=== PATIENT | male | born 1970 | race Hispanic/Latino ===

== ENCOUNTER → 2023-06-07 10:28 | Outpatient (REF) | payer OTHER, MEDICAID, SELFPAY ==
[2023-06-07 12:51] LABS: Blood Urea Nitrogen 21 mg/dl (9-20); Calcium 8.9 mg/dl (8.4-10.2); Carbon Dioxide 22 mmol/L (22-30); Chloride 103 mmol/L (98-107); Glucose 424 mg/dl (70-99); Potassium 5.1 mmol/L (3.5-5.1); Sodium 132 mmol/L (135-145); eGFR > 60.00
== END ==
LOC: CLINIC 10:28
PROVIDERS: ATTENDING PHYSICIAN Nurse Practitioner Adult Health
DX: N28.9 Disorder of kidney and ureter, unspecified (principal); M54.2 Cervicalgia
CPT/HCPCS: 36415; 72052; 80048

== ENCOUNTER 2023-06-27 09:42 | Emergency (ER) | payer MEDICAID, SELFPAY ==
[2023-06-27 09:46] VITALS: BP 150/78
[2023-06-27 10:21] LABS: % Basophils 0.7 % (0-2); % Eosinophils 5.5 % (0-6); % Immature Granulocytes 0.3 % (0-0.5); % Lymphocytes 21.4 % (20.5-51.1); % Monocytes 4.2 % (1.7-9.3); % Neutrophils 67.9 % (42.2-75.2); Absolute Basophils 0.1 10^3/uL (0-0.2); Absolute Eosinophils 0.4 10^3/uL (0-0.7); Absolute Lymphocytes 1.6 10^3/uL (1.2-3.4); Absolute Monocytes 0.3 10^3/uL (0.1-0.6); Absolute Neutrophils 5.2 10^3/uL (1.4-6.5); Hematocrit 34.5 % (39.0-52.0); Hemoglobin 11.7 g/dL (13.0-18.0); Mean Corp Hgb Conc. 33.9 g/dL (33.0-37.0); Mean Corpuscular Hgb 27.5 pg (27.0-31.0); Mean Platelet Volume 9.8 fL (7.4-10.4); Nucleated Red Blood Cells % 0 % (-); Platelet Count 250 10^3/uL (130-400); Red Blood Cell Count 4.26 10^6/uL (4.70-6.10); Red Cell Dist. Width 13.2 % (11.5-14.5); White Blood Cell Count 7.6 10^3/uL (4.8-10.8)
--- NOTE | 2023-06-27 10:35 | ED.GENMED ---
History of Present Illness
<Jignesh Jenkins DO - Last Filed: 06/27/23 15:56>
General
Chief Complaint: Breathing Problem
Time Seen by Provider: 06/27/23 09:57
Travel History
Have you had any contact with someone who has COVID-19?: No
Do you have any symptoms of coronavirus? Fever > 100 degrees, chills, cough, shortness of breath, sore throat, loss of taste or smell, muscle aches, or headache?: No
<Nora Solis PA-C - Last Filed: 06/27/23 22:57>
General
Source: patient
Exam Limitations: none
Nursing documentation reviewed up to this point in time: agreed with
History of Present Illness
History of Present Illness:
Patient is a 53-year-old male with history atrial fibrillation on Eliquis, hypertension, hyperlipidemia, diabetes, renal cell carcinoma, asthma presenting for evaluation of shortness of breath and epigastric discomfort. This shortness of breath has
been present intermittently for the past few weeks, with an associated productive cough with white sputum. He denies any associated fever. No known recent virus/illness. He uses a few inhalers as [facility] by [facility] to control his asthma
including an inhaler that he uses daily along with 1 that is for as needed use. He has not had much improvement in shortness of breath with these inhalers over the past 2 days.
Patient also endorses some epigastric discomfort. He denies any nausea, vomiting, abdominal pain. No urinary symptoms.
He is compliant medications. He is currently working with his primary care fighter to get his diabetes under better control.
Past History
<Jignesh Jenkins DO - Last Filed: 06/27/23 15:56>
Past History
ED Past Medical History: Arrthythmia (Paroxysmal atrial fibrillation), Asthma, Cancer (kidney cancer), Hypercholesterolemia, IDDM and Other (vitillego)
ED Past Surgical History: Urological (neprectomy)
Social History
Tobacco: Former smoker (occasional smoker)
Alcohol: Occasional
Drug: None
Personal: Single
Living: alone
Employment: Employed
Family History
Family History: Diabetes
<Nora Solis PA-C - Last Filed: 06/27/23 22:57>
Physical Exam
Physical Exam:
General: Well appearing and non-toxic
Vitals: Hypertensive, otherwise vital signs stable, afebrile
HEENT: Atraumatic, normocephalic; pupils equal round reactive light bilaterally, protecting airway
Neck: appears supple, no JVD
CV: Regular rate and rhythm, heart sounds normal, no evidence of cyanosis
Resp: Decreased breath sounds bilaterally with expiratory wheeze,
Abd: Soft, very mild tenderness in epigastric/lower chest wall without rebound or guarding non-distended
Extremities: No deformities, no evidence of cyanosis or edema; DP pulses palpable and equal bilaterally
Neuro: alert and oriented x 3, grossly intact
Psych: Normal affect
Skin: Intact, no rashes
<Nora Solis PA-C - Last Filed: 06/27/23 22:57>
Heart Failure Risk
Heart Failure Risk Score: Yes
History of Stroke or TIA: No
History of intubation for respiratory distress: No
Heart rate on ED arrival >/= 110: No
SaO2 <90% on arrival on room air: No
HR >/=110 during 3min walk test (or too ill to perform test): No
ECG has acute ischemic changes: No
Urea >/=12mmol/L (BUN 33.6mg/dL): No
Serum CO2>/=35mmol/L: No
Troponin I or T elevated to OK Level (0.4mg/dL): No
NT-proBNP >/=5,000ng/L (5,000pg/ml): No
HF Risk Score: 0
Admission Status: LOW RISK 2.8% Consider discharge to home with f/u visit to PCP/[facility]
Course
<Jignesh Rhodes Alice, DO - Last Filed: 06/27/23 15:56>
Orders/Labs/Results
Orders:
Orders
06/27/23 09:51
Electrocardiogram (*1) Urgent
Reason for Study: Shortness of Breath
EKG- Treatment ONCE
06/27/23 10:11
Complete Blood Count/With Diff Urgent
Comprehensive Metabolic Panel Urgent
Lipase Urgent
NT-proBNP Urgent
Troponin I Urgent
Urinalysis Reflex To Culture Urgent
Date Specimen was Collected: 06/27/23
Time Specimen was Collected: 10:09
Urine Microscopic Reflex Cult Urgent
06/27/23 10:28
CR Chest - 2 Views Urgent
Comment:
Reason For Exam: shortness of breath
06/27/23 10:41
Dexamethasone Sod Phosphate [Decadron] 10 mg IV NOW STA
Ipratropium/Albuterol Sulfate [Duoneb] 3 ml INH R NOW STA
06/27/23 10:42
Ipratropium/Albuterol Sulfate [Duoneb] 3 ml INH R NOW STA
06/27/23 10:49
COVID-19 Antigen Urgent
Source: Nasal Swab
Influenza A+B Rapid Molecular Urgent
ANTOINE Source: Nasal Swab
Specimen Description:
06/27/23 12:46
Electrocardiogram (*1) Urgent
Reason for Study: Palpitations
EKG- Treatment ONCE
06/27/23 12:51
Diltiazem HCl [Cardizem] 10 mg IV NOW STA
06/27/23 13:36
Electrocardiogram (*1) Urgent
Reason for Study: Abnormal EKG
EKG- Treatment ONCE
Abnormal Lab Results
06/27/23 06/27/23
10:11 11:19
RBC 4.26 L 10^6/uL
(4.70-6.10)
Hgb 11.7 L g/dL
(13.0-18.0)
Hct 34.5 L %
(39.0-52.0)
Glucose 230 H mg/dl
(70-99)
AST 16 L U/L
(17-59)
Alkaline Phosphatase 148 H U/L
(38-126)
Ur Occult Blood Reflex 3+ A
(Negative)
Urine RBC 7-10 A /HPF
(0-2)
POC Glucose 259 H mg/dl
(70-99)
06/27/23 10:11
06/27/23 10:11
Vital Signs
Initial and Last Documented VS:
Initial Vital Signs
Temp Pulse Resp BP Pulse Ox
98.7 F 57 18 150/78 98
06/27/23 09:46 06/27/23 09:46 06/27/23 09:46 06/27/23 09:46 06/27/23 09:46
Last Documented Vital Signs
Temp Pulse Resp BP Pulse Ox
98.7 F 71 18 127/71 96
06/27/23 09:46 06/27/23 13:45 06/27/23 13:45 06/27/23 13:13 06/27/23 13:45
<Nora Solis PA-C - Last Filed: 06/27/23 22:57>
Orders/Labs/Results
Orders:
Orders
06/27/23 09:51
Electrocardiogram (*1) Urgent
Reason for Study: Shortness of Breath
EKG- Treatment ONCE
06/27/23 10:11
Complete Blood Count/With Diff Urgent
Comprehensive Metabolic Panel Urgent
Lipase Urgent
NT-proBNP Urgent
Troponin I Urgent
Urinalysis Reflex To Culture Urgent
Date Specimen was Collected: 06/27/23
Time Specimen was Collected: 10:09
Urine Microscopic Reflex Cult Urgent
06/27/23 10:28
CR Chest - 2 Views Urgent
Comment:
Reason For Exam: shortness of breath
06/27/23 10:41
Dexamethasone Sod Phosphate [Decadron] 10 mg IV NOW STA
Ipratropium/Albuterol Sulfate [Duoneb] 3 ml INH R NOW STA
06/27/23 10:42
Ipratropium/Albuterol Sulfate [Duoneb] 3 ml INH R NOW STA
06/27/23 10:49
COVID-19 Antigen Urgent
Source: Nasal Swab
Influenza A+B Rapid Molecular Urgent
ANTOINE Source: Nasal Swab
Specimen Description:
06/27/23 12:46
Electrocardiogram (*1) Urgent
Reason for Study: Palpitations
EKG- Treatment ONCE
06/27/23 12:51
Diltiazem HCl [Cardizem] 10 mg IV NOW STA
06/27/23 13:36
Electrocardiogram (*1) Urgent
Reason for Study: Abnormal EKG
EKG- Treatment ONCE
Abnormal Lab Results
06/27/23 06/27/23
10:11 11:19
RBC 4.26 L 10^6/uL
(4.70-6.10)
Hgb 11.7 L g/dL
(13.0-18.0)
Hct 34.5 L %
(39.0-52.0)
Glucose 230 H mg/dl
(70-99)
AST 16 L U/L
(17-59)
Alkaline Phosphatase 148 H U/L
(38-126)
Ur Occult Blood Reflex 3+ A
(Negative)
Urine RBC 7-10 A /HPF
(0-2)
POC Glucose 259 H mg/dl
(70-99)
06/27/23 10:11
06/27/23 10:11
Vital Signs
Initial and Last Documented VS:
Initial Vital Signs
Temp Pulse Resp BP Pulse Ox
98.7 F 57 18 150/78 98
06/27/23 09:46 06/27/23 09:46 06/27/23 09:46 06/27/23 09:46 06/27/23 09:46
Last Documented Vital Signs
Temp Pulse Resp BP Pulse Ox
98.7 F 71 18 127/71 96
06/27/23 09:46 06/27/23 13:45 06/27/23 13:45 06/27/23 13:13 06/27/23 13:45
<Nora Solis PA-C - Last Filed: 06/27/23 22:57>
MDM/Problems Addressed
Differential Diagnosis Includes:
asthma exacerbation, influenza, covid, bronchitis, pneumonia, doubt PE or peumothorax
MDM/Problems Addressed:
Patient is a 53 year old male with history as documented presenting for evaluation of ongoing shortness of breath over the past few weeks with an associated productive cough. He endorses mild fullness in upper abdomen. No fever, chills, chest pain,
or known viruses. Patient has tried his inhalers as prescribed for asthma with minimal improvement. Patient is hypertensive, otherwise vital signs stable. Oxygen saturation 97 on room air. Physical exam as documented above. He has diminished breath
sounds bilaterally with faint wheezing. No evidence of DVT in lower extremities. Suspect this is likely an asthma exacerbation from viral cause. Basic labs, lipase, UA obtained in triage and currently pending. Will add on viral swabs an chest xray.
Will give 10mg decadron and 2 duoneb
EKG shows sinus bradycardia rate of 58 without signs of ischemia. CBC without any clinically significant abnormalities. CMP with hyperglycemia - otherwise no clinically significant abnormalities. Patient reports did not take insulin this morning
since he was in emergency department. ProBNP negative. Troponin negative. Lipase normal. viral swabs negative
Blood was found incidentally on urinalysis that was sent. patient will follow-up with urology.
Chest xray without any signs of acute disease
Update: Patient feeling better after duonebs and steroids. Air movement improved from initial lung exam. Following duonebs- patient reported heart palpitations and was found to be in rapid atrial flutter. Gave 10mg cardizem and patient quickly
converted back NSR. Repeat EKG obtained.
Patient feeling much better- suspect asthma exacerbation with reponse to breathing tx/steroids. His vital signs remain stable.Will discharge with close return precautions, oral steroids, albuterol, follow-up with PCP / urology. Patient comfortable
with this plan. All questions answered.
Chronic conditions affecting care:
Hypertension, atrial fibrillation, diabetes, asthma
Acute Exacerbation and/or Progression of Chronic Illness:
Acute asthma exacerbation, acutely hypertensive
<Nora Solis PA-C - Last Filed: 06/27/23 22:57>
*Radiology
Radiology exam reviewed: preliminary read by ED provider and radiology read reviewed
*Pulse Oximetry
Patient hypoxic: no
*EKG
Interpreted by ED Provider?: Yes
EKG Intrepretation Date: 06/27/23
Interpretation: normal
Comparison EKG: no changes
Heart Rate: 58
Rate: bradycardiac
Rhythm: sinus
Hinkle: normal axis
Interval: normal interval
QRS Pattern: normal QRS
Ischemia: no ischemia
*Food Services Manager Interpretation
Rate: normal
Interpretation: normal
Heart Rate: 68
Rhythm: sinus
*Critical Care Note
Total Time (30-74mins, 75-104mins- exclusive of procedures): Not Applicable
ED Attending Note
<Jignesh Jenkins DO - Last Filed: 06/27/23 15:56>
ED Attending Note
Patient seen and examined by attending physician: Yes
I performed the substantive portion of visit, reviewed & personally made and approve the management plan that is documented in note by myself or KEYUR.: Yes
I performed a history and physical exam of patient and discussed management with resident, I reviewed resident's note and agree with documented findings and plan of care.: Yes
ED Attending Note:
I evaluated patient at bedside. The patient has wheeze with decreased breath sounds. Will obtain the chest x-ray and try DuoNebs with steroids. The patient does have a history of asthma. While in the ED, the patient did go into rapid atrial
flutter after he was given 2 DuoNebs. I did give a dose of Cardizem and this did convert him back to a sinus rhythm confirmed on repeat EKG. Overall he feels improved. Will continue steroids.
-
Portions of this chart may have been created with voice recognition software.� Occasional wrong word or��sound alike� substitutions may have occurred due to the inherent limitations of voice recognition software.
Discharge Plan
Departure
Patient Disposition: Home (Routine Discharge)
Date of Disposition: 06/27/23
Time of Disposition: 13:44
Patient with high blood pressure during this ER visit?: No
Condition: Good
Covid-19: Negative COVID-19
Discharge Problem:
Acute asthma exacerbation
Instructions: Asthma, Adult (DC), Acute Bronchitis, Adult (DC)
Prescriptions:
New
prednisone 50 mg tablet
50 mg PO DAILY Qty: 4 0RF
albuterol sulfate [ProAir HFA] 90 mcg/actuation HFA aerosol inhaler
1 puff inhalation Q4HPRN PRN (Reason: shortness of breath or cough) Qty: 8.5 0RF
No Action
cyanocobalamin (vitamin B-12) 1,000 mcg Tablet
1,000 mcg PO DAILY
atorvastatin 10 mg tablet
10 mg PO QPM
lisinopril 5 mg tablet
5 mg PO DAILY
albuterol sulfate 90 mcg/actuation Hfa Aerosol Inhaler
2 puff INHALATION R Q4 PRN (Reason: sob/wheezing)
famotidine 20 mg tablet
20 mg PO BID
montelukast 10 mg tablet
10 mg PO QPM
fluticasone propionate 50 mcg/actuation [place],Suspension
1 spray INTRANASAL BID
loratadine 10 mg tablet
10 mg PO DAILY
insulin lispro [Humalog KwikPen Insulin] 100 unit/mL Insulin Pen
10 - 20 sliding scale dose SC MEALS
insulin glargine [Basaglar KwikPen U-100 Insulin] 100 unit/mL (3 mL) Insulin Pen
40 - 42 unit SC HS
fluticasone furoate-vilanterol [Breo Ellipta] 100-25 mcg/dose Blister With Device
1 inh INHALATION R DAILY
tramadol 50 mg Tablet
50 mg PO Q6HPRN PRN (Reason: moderate pain) Qty: 30 0RF
docusate sodium [Colace] 100 mg capsule
100 mg PO BID Qty: 20 0RF
amoxicillin-pot clavulanate 875-125 mg tablet
1 tab PO Q12H Qty: 8 0RF
ferrous sulfate 325 mg (65 mg iron) Tablet
325 mg PO BID Qty: 0 0RF
metoprolol succinate 25 mg tablet extended release 24 hr
25 mg PO BID Qty: 30 0RF
Eliquis 5 MG tablet
5 mg PO BID Qty: 0 0RF
Rx Instructions:
free from [facility] . Start 01/03/23
meclizine [Antivert] 25 mg Tablet,Chewable
25 mg PO BIDPRN PRN (Reason: nausea or vertigo) Qty: 10 0RF
Referrals:
NONE,* [Family Provider] -
Activity Restrictions/Additional Instructions:
-Return to the emergency department with any high fevers, shortness of breath/difficulty breathing, chest pain, dizziness, palpitations, severe abdominal pain, intractable vomiting, worsening in current symptoms, or any other concerns
-Your prescriptions have been sent to your pharmacy. As discussed�you should continue to use as inhalers as directed. You can start the steroid tomorrow and take daily for the following 4 days. Use albuterol inhaler every 4-6 hours as needed for
cough/shortness of breath
-As discussed�there was some blood seen in your urine today you should follow-up with your urologist for further evaluation/management
-Your glucose was high in the emergency room today you should follow-up with your primary care for further evaluation/management of diabetes
-Follow-up with primary care for further evaluation/management of your asthma
Interventions
Interventions:
*Risk Screen - Suicide Last Done: 06/27/23 10:14
*General Assessment Last Done: 06/27/23 10:14
*Neglect/Abuse Screening Last Done: 06/27/23 10:14
ED- Fall Risk Assessment Last Done: 06/27/23 14:02
*ED COVID-19 Vaccine History Last Done: 06/27/23 09:49
*Nursing Disposition Last Done: 06/27/23 14:02
ED- Cardiac Assessment Last Done: 06/27/23 10:09
ED- Pulmonary Assessment Last Done: 06/27/23 10:09
Discharge Date and Time
Discharge Date/Time: 06/27/23 14:04
[2023-06-27 10:42] LABS: ALT (SGPT) 17 U/L (0-50); AST (SGOT) 16 U/L (17-59); Albumin 4.2 g/dl (3.5-5.0); Alkaline Phosphatase 148 U/L (38-126); Blood Urea Nitrogen 20 mg/dl (9-20); Calcium 9.2 mg/dl (8.4-10.2); Carbon Dioxide 23 mmol/L (22-30); Chloride 104 mmol/L (98-107); Glucose 230 mg/dl (70-99); Lipase 98 U/L (23-300); Potassium 4.3 mmol/L (3.5-5.1); Sodium 135 mmol/L (135-145); Total Bilirubin 0.5 mg/dl (0.2-1.3); Total Protein 7.8 g/dl (6.3-8.2); eGFR > 60.00
[2023-06-27 10:43] LABS: NT-proBNP 157 pg/ml; Troponin I < 0.012 ng/ml
[2023-06-27] MEDS: DUONEB 3 ML INH ×2 (10:47)
[2023-06-27] MEDS: DECADRON 10 MG IV (10:47)
[2023-06-27 11:03] LABS: Urine Albumin Negative (Neg - Trace); Urine Bilirubin Negative (Negative); Urine Character Clear (Clear); Urine Color Yellow; Urine Glucose Negative (Negative); Urine Ketone Negative (Negative); Urine Leukocyte Negative (Negative); Urine Nitrite Negative (Negative); Urine Occult Blood 3+ (Negative); Urine Urobilinogen Negative (Neg - 1+)
[2023-06-27 11:17] VITALS: BP 155/78
[2023-06-27 11:21] LABS: Glucose - Point of Care 259 mg/dl (70-99)
[2023-06-27 11:23] LABS: COVID-19 Antigen Negative (Negative)
[2023-06-27 12:00] VITALS: BP 118/68
[2023-06-27 12:45] VITALS: BP 140/84
[2023-06-27] MEDS: CARDIZEM 10 MG IV (12:55)
[2023-06-27 13:13] VITALS: BP 127/71
== END 2023-06-27 14:04 | disposition home or self-care (01) ==
LOC: EMR 09:42
PROVIDERS: Physician Assistant; EMERGENCY PHYSICIAN Emergency Medicine
DX: J45.901 Unspecified asthma with (acute) exacerbation (principal); J45.909 Unspecified asthma, uncomplicated; I48.92 Unspecified atrial flutter; Z87.891 Personal history of nicotine dependence; Z11.52 Encounter for screening for COVID-19
CPT/HCPCS: 99285; 96374; 94640; 71046; 80053; 81003; 81015; 82962; 83690; 83880; 84484; 85025; 87502; 87811; 93005

== ENCOUNTER → 2023-10-11 09:20 | Outpatient (REF) | payer MEDICAID, OTHER, SELFPAY ==
[2023-10-11 12:00] LABS: ALT (SGPT) 15 U/L (0-50); AST (SGOT) 16 U/L (17-59); Albumin 3.9 g/dl (3.5-5.0); Alkaline Phosphatase 128 U/L (38-126); Blood Urea Nitrogen 26 mg/dl (9-20); Calcium 9.2 mg/dl (8.4-10.2); Carbon Dioxide 22 mmol/L (22-30); Chloride 107 mmol/L (98-107); Glucose 147 mg/dl (70-99); Potassium 4.5 mmol/L (3.5-5.1); Sodium 139 mmol/L (135-145); Total Bilirubin 0.5 mg/dl (0.2-1.3); Total Protein 7.3 g/dl (6.3-8.2); eGFR > 60.00
[2023-10-11 13:39] LABS: Glycohemoglobin (HgbA1c) 8.7 % (4.0-5.6)
== END ==
LOC: REG 09:20
PROVIDERS: ATTENDING PHYSICIAN Nurse Practitioner Adult Health
DX: E11.8 Type 2 diabetes mellitus with unspecified complications (principal)
CPT/HCPCS: 36415; 80053; 83036

== ENCOUNTER → 2023-12-11 09:56 | Outpatient (REF) | payer OTHER, SELFPAY ==
[2023-12-11 10:47] LABS: Glucose 175 mg/dl (70-99)
[2023-12-11 13:25] LABS: Glycohemoglobin (HgbA1c) 8.7 % (4.0-5.6)
== END ==
LOC: CLINIC 09:56
PROVIDERS: ATTENDING PHYSICIAN Nurse Practitioner Adult Health
DX: E11.65 Type 2 diabetes mellitus with hyperglycemia (principal)
CPT/HCPCS: 36415; 82947; 83036

== ENCOUNTER → 2023-12-28 06:45 | Outpatient (REF) | payer OTHER, SELFPAY ==
[2023-12-28 08:14] LABS: Rubella Positive
[2023-12-28 08:30] LABS: Hepatitis B Surface Antibody Negative
[2023-12-30 11:56] LABS: Quantiferon Mitogen minus NIL 9.99 IU/mL; Quantiferon NIL 0.01 IU/mL; Quantiferon Plus TB1 minus NIL 0.06 IU/mL (<=0.34); Quantiferon Plus TB2 minus NIL 0.04 IU/mL (<=0.34); Quantiferon TB Gold Plus Negative (Negative)
== END ==
LOC: REG 06:45
PROVIDERS: ATTENDING PHYSICIAN Family Medicine
DX: Z11.1 Encounter for screening for respiratory tuberculosis (principal); Z11.59 Encounter for screening for other viral diseases
CPT/HCPCS: 86480; 86706; 86735; 86762; 86765; 86787

== ENCOUNTER → 2024-07-28 10:18 | Outpatient (REF) | payer OTHER, SELFPAY ==
[2024-07-28 12:19] LABS: Hematocrit 35.4 % (39.0-52.0); Hemoglobin 11.5 g/dL (13.0-18.0); Mean Corp Hgb Conc. 32.5 g/dL (33.0-37.0); Mean Corpuscular Hgb 28.2 pg (27.0-31.0); Mean Corpuscular Volume 86.8 fL (80.0-94.0); Mean Platelet Volume 10.4 fL (7.4-10.4); Platelet Count 264 10^3/uL (130-400); Red Blood Cell Count 4.08 10^6/uL (4.70-6.10); White Blood Cell Count 6.5 10^3/uL (4.8-10.8)
[2024-07-28 12:54] LABS: Glycohemoglobin (HgbA1c) 8.7 % (4.0-5.6)
[2024-07-28 12:58] LABS: ALT (SGPT) 19 U/L (0-50); AST (SGOT) 15 U/L (17-59); Albumin 3.8 g/dl (3.5-5.0); Alkaline Phosphatase 116 U/L (38-126); Blood Urea Nitrogen 27 mg/dl (9-20); Calcium 9.2 mg/dl (8.4-10.2); Carbon Dioxide 27 mmol/L (22-30); Chloride 104 mmol/L (98-107); Glucose 274 mg/dl (70-99); HDL Cholesterol 57 mg/dl; LDL Cholesterol, Calculated 79 mg/dl; Potassium 4.8 mmol/L (3.5-5.1); Sodium 138 mmol/L (135-145); Total Bilirubin 0.5 mg/dl (0.2-1.3); Total Cholesterol 162 mg/dl (50-199); Total Protein 7.1 g/dl (6.3-8.2); Triglyceride 132 mg/dl (10-149); Very Low Density Lipoprotein 26 mg/dl (0-30); eGFR > 60.00
[2024-07-28 13:11] LABS: Microalbumin, Random Urine 0.7 mg/dl (0.6-1.7); Microalbumin/creatinine Ratio 7.3 mg/g
[2024-07-28 13:34] LABS: Vitamin B12 722 pg/ml (239-931)
== END ==
LOC: HWLAB 10:18
PROVIDERS: ATTENDING PHYSICIAN Nurse Practitioner Adult Health
DX: E53.8 Deficiency of other specified B group vitamins (principal); R80.9 Proteinuria, unspecified; E78.5 Hyperlipidemia, unspecified; E11.8 Type 2 diabetes mellitus with unspecified complications
CPT/HCPCS: 36415; 80053; 80061; 82043; 82570; 82607; 83036; 85027

== ENCOUNTER → 2024-08-18 08:00 | Outpatient (REF) | payer OTHER, SELFPAY | LOC: RAD 08:00 | PROVIDERS: ATTENDING PHYSICIAN Nurse Practitioner Adult Health | DX: C64.2 Malignant neoplasm of left kidney, except renal pelvis (principal) | CPT/HCPCS: 74178; Q9967 ==

== ENCOUNTER → 2025-01-29 10:11 | Outpatient (REF) | payer OTHER, SELFPAY ==
[2025-01-29 12:43] LABS: Hematocrit 35.0 % (39.0-52.0); Hemoglobin 11.2 g/dL (13.0-18.0); Mean Corp Hgb Conc. 32.0 g/dL (33.0-37.0); Mean Corpuscular Volume 85.6 fL (80.0-94.0); Platelet Count 265 10^3/uL (130-400); Red Cell Dist. Width 12.6 % (11.5-14.5)
[2025-01-29 12:48] LABS: ALT (SGPT) 21 U/L (0-50); AST (SGOT) 17 U/L (17-59); Albumin 3.9 g/dl (3.5-5.0); Alkaline Phosphatase 131 U/L (38-126); Blood Urea Nitrogen 15 mg/dl (9-20); Calcium 9.3 mg/dl (8.4-10.2); Carbon Dioxide 26 mmol/L (22-30); Chloride 102 mmol/L (98-107); Glucose 353 mg/dl (70-99); Potassium 4.8 mmol/L (3.5-5.1); Sodium 135 mmol/L (135-145); Total Protein 7.3 g/dl (6.3-8.2); eGFR > 60.00
[2025-01-29 12:57] LABS: Glycohemoglobin (HgbA1c) 9.1 % (4.0-5.6)
[2025-01-29 13:34] LABS: Vitamin B12 280 pg/ml (239-931)
== END ==
LOC: HWLAB 10:11
PROVIDERS: ATTENDING PHYSICIAN Nurse Practitioner Adult Health
DX: Z79.4 Long term (current) use of insulin (principal); E11.65 Type 2 diabetes mellitus with hyperglycemia; I10 Essential (primary) hypertension; D64.9 Anemia, unspecified; E53.8 Deficiency of other specified B group vitamins
CPT/HCPCS: 36415; 80053; 82607; 83036; 85027